=== PATIENT | male | born 1975 | race Caucasian/White ===

== ENCOUNTER → 2021-01-21 | Outpatient (CLI) | payer BC ==
[~2021-01-21] MED LIST: BIAXIN500 MG PO; CLARITIN10 MG PO
== END | disposition home or self-care (01) ==
LOC: MRI 14:57
PROVIDERS: ATTEND Family Medicine
DX: M48.061 Spinal stenosis, lumbar region without neurogenic claudication (principal); M48.07 Spinal stenosis, lumbosacral region; M51.26 Other intervertebral disc displacement, lumbar region; M51.36 Other intervertebral disc degeneration, lumbar region; M43.06 Spondylolysis, lumbar region